=== PATIENT | male | born 1970 | race Two or more races ===

== ENCOUNTER 2017-02-04 07:36 | Emergency (ER) | payer BC | END 2017-02-04 11:34 | disposition home or self-care (01) | LOC: D.ER 07:36 | DX: S81.812A Laceration without foreign body, left lower leg, initial encounter (principal); W25.XXXA Contact with sharp glass, initial encounter; Y93.89 Activity, other specified; Y92.019 Unspecified place in single-family (private) house as the place of occurrence of the external cause ==